=== PATIENT | male | born 1960 | race Caucasian/White ===

== ENCOUNTER 2017-02-25 18:12 | Emergency (ER) | payer OTHER ==
[~2017-02-25] VITALS: Ht 180.3 cm; Wt 97.9 kg
[~2017-02-25 18:12] MED LIST: METO100T44 PO
[2017-02-25 18:24] VITALS: TEMP 36.7; Ht 180.3 cm; Wt 97.9 kg
[2017-02-25] MEDS ORDERED: SODIUM CHLORIDE 0.9% 1000ML 1,000 ML IV STA (18:40)
--- NOTE | 2017-02-25 18:42 | EMERGENCY ROOM VISIT NOTE ---
History Report prepared by Grabiel: Brigette Tamayo Under the Supervision of: Dr. Soren Harrell M.D. First contact with patient: 18:27 Chief Complaint: ABDOMINAL PAIN Stated Complaint: PAIN IN RT SIDE History of Present Illness The patient is a 56 year old male who presents to the Emergency Room with complaints of constant right sided abdominal pain beginning yesterday. The patient rates his pain as a 3/10. The patient is concerned something is wrong with his gallbladder.The patient has a history of kidney stones. He states his pain does not feel similar or as severe as his previous kidney stones. He denies any fever, chills, nausea, vomiting, or blood in stool. The patient states he has been eating and drinking normally. He states he drank a Mountain Dew 30 minutes which he believes worsened his pain. The patient has a history of colon cancer and had had an extensive resection done. He reports diarrhea which is baseline for him since having his colon resection. Source of History: patient Onset: yesterday Position: abdomen Symptom Intensity: 3/10 Quality: other (pain) Timing: constant Modifying Factors (Worsening): other (mountian dew) Associated Symptoms: + abdominal pain, + diarrhea, No fevers, No chills, No nausea, No vomiting Review of Systems See HPI for pertinent positives and negatives. A total of ten systems were reviewed and were otherwise negative. Past Medical & Surgical Medical Problems: (1) Abdominal pain (2) Colon cancer (3) Hypertension (4) Kidney stone (5) Small bowel obstruction Family History Cancer Hypertension Social History Smoking Status: Never Smoker Alcohol Use: occasionally Housing Status: lives with significant other Occupation Status: employed Current/Historical Medications Scheduled Hydrochlorothiazide (Hctz), 50 MG PO DAILY Lisinopril (Zestril), 30 MG PO DAILY Metoprolol Succ (Toprol Xl) (Toprol-Xl ), 100 MG PO DAILY Potassium Ext Rel (Klor-Con), 20 MEQ PO DAILY Allergies Coded Allergies: No Known Allergies (Verified , 0, 10/09/15) Physical Exam Vital Signs Date Time Temp Pulse Resp B/P (MAP) Pulse Ox O2 Delivery O2 Flow Rate FiO2 02/25/17 21:32 65 18 168/106 98 Room Air 02/25/17 20:55 65 18 162/109 96 Room Air 02/25/17 18:24 36.7 70 20 183/97 97 Room Air Physical Exam GENERAL: Awake, alert, well-appearing, in no distress HENT: Normocephalic, atraumatic. Oropharynx unremarkable. EYES: Normal conjunctiva. Sclera non-icteric. NECK: Supple. No nuchal rigidity. FROM. No JVD. RESPIRATORY: Clear to auscultation. CARDIAC: Regular rate, normal rhythm. Extremities warm and well perfused. Pulses equal. ABDOMEN: Mild RUQ tenderness, no [place] sign no peritoneal signs. Soft, non- distended. No rebound or guarding. No masses. RECTAL: Deferred. MUSCULOSKELETAL: Chest examination reveals no tenderness. The back is symmetrical on inspection without obvious abnormality. There is no CVA tenderness to palpation. No joint edema. LOWER EXTREMITIES: Calves are equal size bilaterally and non-tender. No edema. No discoloration. NEURO: Normal sensorium. No sensory or motor deficits noted. SKIN: No rash or jaundice noted. Medical Decision & Procedures ER Provider Diagnostic Interpretation: Radiology results as stated below per my review and radiologist interpretation: BILIARY ULTRASOUND FINDINGS: The pancreas was nonvisualized. The liver was borderline enlarged. Multiple gallstones were visualized. Sludge is also present within the gallbladder. There was borderline gallbladder wall thickening fundal adenomyomatosis is suspected. There is no ductal dilatation. The common bile duct measures 5 mm. There is no right-sided hydronephrosis. The patient reported mild tenderness to gallbladder palpation. IMPRESSION: 1. Gallstones, gallbladder sludge, and borderline gallbladder wall thickening 2. The patient was mildly tender to gallbladder palpation 3. No evidence of ductal dilatation. The common bile duct measured 5 mm 4. Nondiagnostic evaluation of the pancreas Electronically signed by: Kelechi Ramos M.D. Laboratory Results 02/25/17 18:50 Red Blood Count 4.32, Mean Corpuscular Volume 90.0, Mean Corpuscular Hemoglobin 31.3, Mean Corpuscular Hemoglobin Concent 34.7, Mean Platelet Volume 10.1, Neutrophils (%) (Auto) 56.6, Lymphocytes (%) (Auto) 28.4, Monocytes (%) (Auto) 11.2, Eosinophils (%) (Auto) 2.7, Basophils (%) (Auto) 0.7, Neutrophils # (Auto ) 4.33, Lymphocytes # (Auto) 2.17, Monocytes # (Auto) 0.86, Eosinophils # (Auto ) 0.21, Basophils # (Auto) 0.05 02/25/17 18:50 Test 02/25/17 18:50 02/25/17 20:15 White Blood Count 7.65 K/uL (4.8-10.8) Red Blood Count 4.32 M/uL (4.7-6.1) Hemoglobin 13.5 g/dL (14.0-18.0) Hematocrit 38.9 % (42-52) Mean Corpuscular Volume 90.0 fL (80-100) Mean Corpuscular Hemoglobin 31.3 pg (25-34) Mean Corpuscular Hemoglobin Concent 34.7 g/dl (32-36) Platelet Count 229 K/uL (130-400) Mean Platelet Volume 10.1 fL (7.4-10.4) Neutrophils (%) (Auto) 56.6 % Lymphocytes (%) (Auto) 28.4 % Monocytes (%) (Auto) 11.2 % Eosinophils (%) (Auto) 2.7 % Basophils (%) (Auto) 0.7 % Neutrophils # (Auto) 4.33 K/uL (1.4-6.5) Lymphocytes # (Auto) 2.17 K/uL (1.2-3.4) Monocytes # (Auto) 0.86 K/uL (0.11-0.59) Eosinophils # (Auto) 0.21 K/uL (0-0.5) Basophils # (Auto) 0.05 K/uL (0-0.2) RDW Standard Deviation 46.1 fL (36.4-46.3) RDW Coefficient of Variation 13.9 % (11.5-14.5) Immature Granulocyte % (Auto) 0.4 % Immature Granulocyte # (Auto) 0.03 K/uL (0.00-0.02) Anion Gap 7.0 mmol/L (3-11) Est Creatinine Clear Calc Drug Dose 72.2 ml/min Estimated GFR () 67.8 Estimated GFR (Non- 58.5 BUN/Creatinine Ratio 16.3 (10-20) Calcium Level 8.4 mg/dl (8.5-10.1) Total Bilirubin 0.8 mg/dl (0.2-1) Direct Bilirubin 0.2 mg/dl (0-0.2) Aspartate Amino Transf (AST/SGOT) 31 U/L (15-37) Alanine Aminotransferase (ALT/SGPT) 50 U/L (12-78) Alkaline Phosphatase 89 U/L (45-117) Total Protein 6.8 gm/dl (6.4-8.2) Albumin 3.2 gm/dl (3.4-5.0) Lipase 169 U/L (73-393) Urine Color YELLOW Urine Appearance CLEAR (CLEAR) Urine pH 6.0 (4.5-7.5) Urine Specific [place] 1.016 (1.000-1.030) Urine Protein NEG (NEG) Urine Glucose (UA) NEG (NEG) Urine Ketones NEG (NEG) Urine Occult Blood NEG (NEG) Urine Nitrite NEG (NEG) Urine Bilirubin NEG (NEG) Urine Urobilinogen NEG (NEG) Urine Leukocyte Esterase NEG (NEG) Laboratory results reviewed by me Medications Administered Medications (Trade) Dose Ordered Sig/Ashley Route Start Time Stop Time Status Last Admin Dose Admin Sodium Chloride 1,000 ml @ 999 mls/hr Q1H1M STAT IV 02/25/17 18:40 02/25/17 19:40 DC 02/25/17 19:11 999 MLS/HR ED Course 183: The patient was evaluated in room B6. A complete history and physical exam was performed. 1926: Bedside US shows several gallstones in the gallbladder, no gross pericholecystic fluid 2103: I updated the patient on his ultrasound results. He would like to go home. 2128: I reevaluated the patient. Discussed results and discharge instructions: He verbalized understanding and agreement. The patient is ready for discharge. Medical Decision I reviewed the patient's past medical history, medications, and the nursing notes as described above. Differential diagnoses: biliary colic, chololithiasis, choledocholithiasis, pancreatitis, diverticulitis, colitis, gastroenteritis, UTI, ureteral stone The patient is a 56-year-old gentleman who presents emergency Department with right upper quadrant pain that has been ongoing since last night after having sausage for dinner per hpi. On arrival the patient is well-appearing, no acute distress, afebrile stable vital signs. He rates his pain as 3 out of of 10 and came to the ED just to make sure it was not his gallbladder. Exam the patient has mild right upper quadrant tenderness with negative Bailey's sign. Peritoneal signs otherwise. Labs unremarkable including WBC within normal limits. T bili and direct bili within normal limits. Bedside ultrasound demonstrates numerous gallstones without any pericholecystic fluid and grossly normal CBD. Formal ultrasound was ordered to further characterize and again demonstrated multiple gallstones. Was a comment of a questionably thickened gallbladder wall. However, given the patient is well-appearing with mostly resolved pain on reevaluation, afebrile, reassuring labs are likely to be cholecystitis at this time. I discussed these findings with the patient and he is agreeable to proceed with outpatient follow-up after and understands he will need to adjust his diet to minimize symptoms. He was given strict return instructions should his pain become worse, develop fevers, or nausea and vomiting. Findings and plan for follow-up reviewed with patient. Patient agreeable and d/c'd per discharge instructions. Medication Reconcilliation Current Medication List: was personally reviewed by me Blood Pressure Screening Patient's blood pressure: Elevated blood pressure Blood pressure disposition: Elevated BP felt to be situational Impression Primary Impression: Biliary colic Additional Impression: Gallstones without obstruction of gallbladder Scribe Attestation The scribe's documentation has been prepared under my direction and personally reviewed by me in its entirety. I confirm that the note above accurately reflects all work, treatment, procedures, and medical decision making performed by me. Departure Information Dispostion Home / Self-Care Referrals No Doctor, Assigned (PCP) Eric Luan, DO Forms Call Back Authorization, HOME CARE DOCUMENTATION FORM, IMPORTANT VISIT INFORMATION Patient Instructions ED Gallstone W Biliary Colic, My [facility] Additional Instructions Please follow up with your primary care physician in the next 1-3 days for re- evaluation and general surgery next week if symptoms persist. You were found to have multiple gallstones but your symptoms improved and your labs did not show signs of infection or obstruction at this time. Otherwise, your exam, ultrasound and lab results did not show signs of an emergent condition at this time. Avoid high fat foods. Return to the emergency department for worsening symptoms as described in the accompanying instructions. Problem Qualifiers
[2017-02-25 19:00] LABS: BASO % 0.7 %; BASO ABS # 0.05 K/uL (0-0.2); EOS % 2.7 %; EOS ABS # 0.21 K/uL (0-0.5); HEMATOCRIT 38.9 % (42-52); HEMOGLOBIN 13.5 g/dL (14.0-18.0); IG# 0.03 K/uL (0.00-0.02); LYMPH % 28.4 %; LYMPH ABS # 2.17 K/uL (1.2-3.4); MEAN CORPUSCULAR HEMOGLOBIN 31.3 pg (25-34); MEAN CORPUSCULAR HGB CONC 34.7 g/dl (32-36); MEAN PLATELET VOLUME 10.1 fL (7.4-10.4); MONO % 11.2 %; MONO ABS # 0.86 K/uL (0.11-0.59); NEUT % 56.6 %; NEUT ABS # 4.33 K/uL (1.4-6.5); PLATELET COUNT 229 K/uL (130-400); RED CELL DISTRIBUTION WIDTH CV 13.9 % (11.5-14.5); RED CELL DISTRIBUTION WIDTH SD 46.1 fL (36.4-46.3); WHITE BLOOD COUNT 7.65 K/uL (4.8-10.8)
[2017-02-25 19:22] LABS: ALBUMIN 3.2 gm/dl (3.4-5.0); CALCIUM 8.4 mg/dl (8.5-10.1); CREATININE 1.33 mg/dl (0.60-1.40); POTASSIUM 3.6 mmol/L (3.5-5.1)
[2017-02-25 19:25] LABS: TOTAL PROTEIN 6.8 gm/dl (6.4-8.2)
--- NOTE | 2017-02-25 20:47 | DIAGNOSTIC IMAGING REPORT ---
BILIARY ULTRASOUND CLINICAL HISTORY: Right upper quadrant abdominal pain. History of gallstones. COMPARISON STUDY: CT scan dated 10/10/2015 FINDINGS: The pancreas was nonvisualized. The liver was borderline enlarged. Multiple gallstones were visualized. Sludge is also present within the gallbladder. There was borderline gallbladder wall thickening fundal adenomyomatosis is suspected. There is no ductal dilatation. The common bile duct measures 5 mm. There is no right-sided hydronephrosis. The patient reported mild tenderness to gallbladder palpation. IMPRESSION: 1. Gallstones, gallbladder sludge, and borderline gallbladder wall thickening 2. The patient was mildly tender to gallbladder palpation 3. No evidence of ductal dilatation. The common bile duct measured 5 mm 4. Nondiagnostic evaluation of the pancreas Electronically signed by: Kelechi Ramos M.D. 02/25/2017 8:46 PM Dictated Date/Time: 02/25/2017 8:43 PM
[2017-02-25 21:32] VITALS: BP 168/106; PULSE 65; O2SAT 98
[2017-02-25] MEDS ORDERED: POTA20TA16 PO (23:46)
[2017-02-25] MEDS ORDERED: HYDR50TA3 PO (23:48)
[2017-02-25] MEDS ORDERED: LISI1TAB3 PO (23:49)
== END 2017-02-25 21:41 | disposition home or self-care (01) ==
LOC: C.EDB 18:13
DX: K80.50 Calculus of bile duct without cholangitis or cholecystitis without obstruction (principal); K80.20 Calculus of gallbladder without cholecystitis without obstruction; I10 Essential (primary) hypertension; K56.609 Unspecified intestinal obstruction, unspecified as to partial versus complete obstruction; Z87.442 Personal history of urinary calculi; Z85.46 Personal history of malignant neoplasm of prostate; Z79.899 Other long term (current) drug therapy; Z80.9 Family history of malignant neoplasm, unspecified; Z82.49 Family history of ischemic heart disease and other diseases of the circulatory system

== ENCOUNTER → 2017-03-06 | Outpatient (CLI) | payer OTHER ==
[~2017-03-06] MED LIST changes: +HYDR50TA3 PO; +LISI1TAB3 PO; +MULT-506 PO; +POTA20TA16 PO
[2017-03-06 10:15] LABS: BASO % 0.4 %; BASO ABS # 0.03 K/uL (0-0.2); EOS ABS # 0.15 K/uL (0-0.5); HEMATOCRIT 42.8 % (42-52); HEMOGLOBIN 14.7 g/dL (14.0-18.0); IG# 0.02 K/uL (0.00-0.02); LYMPH % 24.3 %; LYMPH ABS # 1.82 K/uL (1.2-3.4); MEAN CELL VOLUME 91.6 fL (80-100); MEAN CORPUSCULAR HEMOGLOBIN 31.5 pg (25-34); MEAN CORPUSCULAR HGB CONC 34.3 g/dl (32-36); MEAN PLATELET VOLUME 10.9 fL (7.4-10.4); MONO % 8.8 %; MONO ABS # 0.66 K/uL (0.11-0.59); NEUT % 64.2 %; PLATELET COUNT 276 K/uL (130-400); RED CELL DISTRIBUTION WIDTH CV 13.5 % (11.5-14.5); RED CELL DISTRIBUTION WIDTH SD 45.1 fL (36.4-46.3); WHITE BLOOD COUNT 7.48 K/uL (4.8-10.8)
[2017-03-06 10:50] LABS: BLOOD UREA NITROGEN 22 mg/dl (7-18); CARBON DIOXIDE 29 mmol/L (21-32); CREATININE 1.19 mg/dl (0.60-1.40); GLUCOSE 79 mg/dl (70-99); POTASSIUM 4.4 mmol/L (3.5-5.1); SODIUM 140 mmol/L (136-145)
== END | disposition home or self-care (01) ==
LOC: C.CPL 09:24
PROVIDERS: ATTEND Orthopaedic Surgery
DX: Z01.812 Encounter for preprocedural laboratory examination (principal); M75.122 Complete rotator cuff tear or rupture of left shoulder, not specified as traumatic

== ENCOUNTER → 2017-03-16 | Day surgery (SDC) | payer OTHER ==
[2017-03-07 10:04] VITALS: Ht 180.3 cm; Wt 90.9 kg
[~2017-03-16] VITALS: Ht 180.3 cm; Wt 90.9 kg
[~2017-03-16] MED LIST changes: +ATROPINE SULFATE 0.1 MG/ML 5ML SYR IV PRN; +BUPIVACAINE/EPINEPHRINE 0.25% 1:200,000 30 ML VIAL ONE; +CEFAZOLIN 2000MG IV PUSH 10 ML IV SCH; +DEXAMETHASONE SOD INJ 4 MG/ML VIAL ONE; +EpHEDrine SULFATE INJ 50 MG/ML AMP IV PRN; +EpHEDrine SULFATE INJ 50 MG/ML AMP ONE; +EpINEphrine INJ 1MG/ML AMP 1 MG/ML AMP ONE; +FENTANYL CITRATE INJ 50 MCG/1 ML 2 ML VIAL IV PRN; +FENTANYL CITRATE INJ 50 MCG/1 ML 2 ML VIAL ONE; +KETO10TA PO; +LACTATED RINGER'S 1000ML 1,000 ML IV SCH; +LIDOCAINE HCL 2% 2 ML VIAL (20MG/ML) ONE; +MIDAZOLAM HCL 1 MG/ML 2ML VIAL ONE; +ONDANSETRON INJ 2 MG/ML 2 ML VIAL IV PRN; +ONDANSETRON INJ 2 MG/ML 2 ML VIAL ONE; +OXYC-57 PO; +OXYCODONE/ACETAMINOPHEN 5-325 TAB PO PRN; +PROPOFOL IV EMULSION 10 MG/ML 20 ML VIAL IV ONE; +ROCURONIUM BROMIDE 10 MG/ML 5 ML VIAL IV ONE; +ROPIVACAINE 0.5% 5 MG/ML 30 ML VIAL ONE; +SODIUM CHLORIDE 0.9% 1000ML 1,000 ML IV SCH; +SODIUM CHLORIDE 0.9% INJ 10 ML VIAL ONE
--- NOTE | 2017-03-16 11:40 | History & Physical Bridge Note ---
H&P Re-Evaluation Bridge Note: I have examined the patient, reviewed the History & Physical and in the interval since the performance of the History & Physical I have noted the following changes of clinical significance: No changes noted
--- NOTE | 2017-03-16 15:26 | [facility] Post Operative Brief Note ---
Immediate Operative Summary Operative Date Mar 16, 2017. Pre-Operative Diagnosis Left Shoulder Rotator Cuff Tear Post-Operative Diagnosis Same Procedure(s) Performed Left Shoulder Arthroscopic Large Rotator Cuff Repair, Biceps Tenodesis, Acromioplasty Surgeon Dr. Rico Rhinologist Surgeon(s) Ashley Lopez PA-C Estimated Blood Loss 5ml Findings Consistent with Post-Op Diagnosis Specimens None Anesthesia Type General Regional Complication(s) none Disposition Disposition: Recovery Room / PACU
--- NOTE | 2017-03-16 15:50 | Discharge Instructions-SurgCtr ---
Discharge Instructions Date of Service Mar 16, 2017. Visit Reason for Visit: Left Shoulder Full Thickness Rotator Cuff Tear Discharge Discharge Diagnosis / Problem: SAME ABOVE Discharge Goals Goal(s): Decrease discomfort, Improve function Medications Stopped Medications Name(s): Took all medications last night. Restart Stopped Medication(s): MAY RESTART 03/16/2017 Activity Recommendations Activity Limitations: as noted below Lifting Limitations: until after follow-up appointment Exercise/Sports Limitations: until after follow-up appointment Shower/Bathe: tomorrow Anesthesia . Post Anesthesia Instructions: If you have had General Anesthesia or IV Sedation: * Do not drive today. * Resume driving when surgeon permits. * Do not make important decisions or sign legal documents today. * Call surgeon for: 1. Temperature elevations greater than 101 degrees F. 2. Uncontrollable pain. 3. Excessive bleeding. 4. Persistent nausea and vomiting. 5. Medication intolerance (nausea, vomiting or rash). * For nausea and vomiting use only clear liquids such as: tea, soda, bouillon until nausea subsides, then gradually increase diet as tolerated. * If you have any concerns or questions, call your surgeon's office. If physician is unavailable and it is an emergency, call 911 or go to the nearest emergency room. . Instructions / Follow-Up Instructions / Follow-Up MEDICATIONS: * Resume previous medications unless instructed otherwise by your surgeon. * Always take pain medication on a full stomach or with food to avoid upset stomach. * Do not drink alcohol or drive while taking narcotics. * Ibuprofen or Tylenol may be taken if narcotic not needed. SPECIAL CARE INSTRUCTIONS: __ None _X_ Keep extremity elevated and iced x 48 hours; apply ice 20-30 minutes 8-10 times/day. May remove at night. __ Sling __24 hrs/day __ Remove at night _X_ Shoulder Immobilizer _X_ 24 hrs/day __ Remove at night _X_ Dressing __ Maintain until seen in office, may shower with plastic over site _X_ Remove dressings in 24-48 hours and then may shower _X_ Cover incisions with band-aids after showering __ Do not remove steri-strips Call physician if chills or temperature rises above 102 degrees or pain unrelieved by prescribed pain medications at . . Diet Recommendations Home Diet: no limitations Fluid Restriction: None Procedures Procedures Performed: Left Shoulder Arthroscopic Large Rotator Cuff Repair, Biceps Tenodesis, Acromioplasty Pending Studies Studies pending at discharge: no Work Instructions Return To Work: after follow-up Lifting Limitations: NO LIFTING WITH LEFT ARM Medical Emergencies . Who to Call and When: Medical Emergencies: If at any time you feel your situation is an emergency, please call 911 immediately. . Non-Emergent Contact Non-Emergency issues call your: Primary Care Provider Call Non-Emergent contact if: you have a fever, temperature is above 101.5 . . "Provider Documentation" section prepared by Phani Lopez. .
[2017-03-16 16:35] VITALS: TEMP 36.4
--- NOTE | 2017-03-16 16:37 | Anesthesia Progress Nt - [facility] ---
Anesthesia Post Op Note Date & Time Mar 16, 2017 at 16:35 Vital Signs Pain Intensity: 0 Vital Signs Past 12 Hours Date Time Temp Pulse Resp B/P (MAP) Pulse Ox O2 Delivery O2 Flow Rate FiO2 03/16/17 16:13 36.4 74 16 168/98 99 Room Air Mask 03/16/17 16:10 79 15 99 03/16/17 16:10 78 15 03/16/17 16:06 175/105 03/16/17 16:05 75 16 99 03/16/17 16:05 76 16 03/16/17 16:02 180/100 03/16/17 16:01 180/101 03/16/17 16:00 82 15 98 03/16/17 16:00 82 15 03/16/17 15:56 176/98 03/16/17 15:55 83 16 03/16/17 15:55 82 16 99 03/16/17 15:51 169/94 03/16/17 15:50 79 17 100 03/16/17 15:50 80 17 03/16/17 15:46 166/89 03/16/17 15:45 77 22 100 03/16/17 15:45 76 22 03/16/17 15:41 171/90 03/16/17 15:40 82 30 100 03/16/17 15:40 82 30 03/16/17 15:39 169/90 03/16/17 15:38 83 100 03/16/17 15:38 83 03/16/17 15:35 36.1 84 16 193/98 99 Mask 03/16/17 15:35 193/98 03/16/17 15:33 182/100 03/16/17 13:47 0 03/16/17 13:46 161/99 03/16/17 13:42 57 28 99 03/16/17 13:42 57 03/16/17 13:41 169/95 03/16/17 13:40 58 03/16/17 13:40 58 12 100 03/16/17 13:39 65 52 99 03/16/17 13:39 65 03/16/17 13:34 63 15 100 03/16/17 13:34 62 03/16/17 13:29 56 19 99 03/16/17 13:29 55 03/16/17 13:24 59 21 99 03/16/17 13:24 56 03/16/17 13:23 53 03/16/17 13:23 53 19 100 03/16/17 13:22 50 03/16/17 13:22 46 20 100 03/16/17 13:21 146/91 03/16/17 13:21 146/91 03/16/17 13:18 55 20 99 03/16/17 13:18 55 03/16/17 13:18 55 03/16/17 13:18 55 20 99 03/16/17 13:17 50 20 99 03/16/17 13:17 52 03/16/17 13:16 146/90 03/16/17 13:13 56 22 100 03/16/17 13:13 55 03/16/17 13:12 62 16 100 03/16/17 13:12 62 16 100 03/16/17 13:12 63 03/16/17 13:12 63 03/16/17 13:11 161/95 03/16/17 13:10 62 03/16/17 13:10 63 19 100 03/16/17 13:09 63 03/16/17 13:09 60 24 100 03/16/17 13:06 151/89 03/16/17 13:04 63 03/16/17 13:04 63 20 100 03/16/17 13:03 161/96 03/16/17 13:00 58 03/16/17 13:00 59 33 100 03/16/17 12:59 50 18 100 03/16/17 12:59 51 03/16/17 12:59 50 18 100 03/16/17 12:59 51 03/16/17 10:45 36.6 60 18 156/99 (118) 96 Room Air Notes Mental Status: alert / awake / arousable, participated in evaluation Pt Amnestic to Procedure: Yes Nausea / Vomiting: adequately controlled Pain: adequately controlled Airway Patency, RR, SpO2: stable & adequate BP & HR: stable & adequate Hydration State: stable & adequate Anesthetic Complications: no major complications apparent The patient usually takes his antihypertensive meds at 1700 which is about the time of discharge. He was instructed to take them when he gets home.
[2017-03-16 16:48] VITALS: BP 171/99; PULSE 90; O2SAT 96
--- NOTE | 2017-03-16 16:52 | OPERATIVE REPORT ---
DATE OF OPERATION: 03/16/2017 PREOPERATIVE DIAGNOSIS: Large left rotator cuff tear. POSTOPERATIVE DIAGNOSIS: Same. PROCEDURE: Left shoulder diagnostic arthroscopy with extensive debridement, acromioplasty, large rotator cuff repair and arthroscopic biceps tenodesis. SURGEON: Dr. Clint Rico. SILK SPOTTER: Francesco Lopez PA-C, whose assistance was necessary for positioning the arm and helping with instrumentation. ANESTHESIA: General with left interscalene nerve block. COMPLICATIONS: None. CONDITION: Stable to PACU. INDICATIONS: Jossue is a pleasant 56-year-old male who presented to my office with complaints of left shoulder pain. MRI and clinical examination were diagnostic for large left rotator cuff tear. After failing conservative treatment, he elected to undergo arthroscopy. On 03/16/2017, he arrived at [facility] for the above procedure. He was seen in the preoperative holding area and the operative extremity was identified and signed. He was given a preoperative antibiotic and left interscalene nerve block. He was then taken back to the operating room, laid on table in supine position and put under general anesthesia. He was then put into the beachchair position. The left shoulder was prepped and draped in sterile fashion. Timeout was done, and the patient and operative extremity was properly identified. A scope was introduced in the posterior portal. Diagnostic arthroscopy showed no cartilage damage to the humeral head or the glenoid. The biceps tendon was frayed in the biceps daria mechanism. The subscapularis was intact. There was a tear of the entire supraspinatus and most of the infraspinatus. The teres minor was intact. An anterior portal was made. A shaver was used to do a limited debridement of some of the intraarticular structures. The biceps tendon was arthroscopically tenotomized for later tenodesis. The scope was then put into the subacromial space. A lateral portal was made. A shaver was used to do a complete subacromial and subdeltoid bursectomy. An ablator was used to tease the coracoacromial ligament off the undersurface of the acromion and a 5-0 johnnie was used to complete an acromioplasty of a Bigliani type 3 acromion. A shaver was used to remove any excess debris and attention was turned to the rotator cuff. It was a large, almost U-shaped tear. The greater tuberosity was prepared with a ring curette and microfracture. Rotator cuff was then fixed with an Arthrex suspension bridge configuration using 4.75 mm BioComposite SwiveLock suture anchors and FiberTapes. This gave a nice knotless SpeedBridge repair. Multiple pictures were taken. The scope was put back into the glenohumeral joint and the articular margin of the rotator cuff had been restored. Pictures were taken. During the procedure, the long head of the biceps tendon was tagged with an Arthrex FiberLink suture. That was incorporated into the anterior medial anchor to complete an arthroscopic biceps tenodesis. Arthroscopic instruments were removed from the shoulder. Portal sites were closed with 3-0 nylon. He was then placed in a soft dressing and a left arm sling. He was then extubated, transferred to a litter and taken to the postanesthesia care unit in stable condition. He tolerated the procedure well. I attest to the content of the Intraoperative Record and any orders documented therein. Any exception s are noted below.
== END | disposition home or self-care (01) ==
LOC: X.SURG 10:32
PROVIDERS: ATTEND Orthopaedic Surgery
DX: S46.012A Strain of muscle(s) and tendon(s) of the rotator cuff of left shoulder, initial encounter (principal); X58.XXXA Exposure to other specified factors, initial encounter; Z80.0 Family history of malignant neoplasm of digestive organs; I10 Essential (primary) hypertension; Z79.899 Other long term (current) drug therapy

== ENCOUNTER 2017-05-01 09:35 | Emergency (ER) | payer OTHER ==
[~2017-05-01] VITALS: Ht 180.3 cm; Wt 88.8 kg
[~2017-05-01 09:35] MED LIST changes: -ATROPINE SULFATE 0.1 MG/ML 5ML SYR IV PRN; -BUPIVACAINE/EPINEPHRINE 0.25% 1:200,000 30 ML VIAL ONE; -CEFAZOLIN 2000MG IV PUSH 10 ML IV SCH; -DEXAMETHASONE SOD INJ 4 MG/ML VIAL ONE; -EpHEDrine SULFATE INJ 50 MG/ML AMP IV PRN; -EpHEDrine SULFATE INJ 50 MG/ML AMP ONE; -EpINEphrine INJ 1MG/ML AMP 1 MG/ML AMP ONE; -FENTANYL CITRATE INJ 50 MCG/1 ML 2 ML VIAL IV PRN; -FENTANYL CITRATE INJ 50 MCG/1 ML 2 ML VIAL ONE; -LACTATED RINGER'S 1000ML 1,000 ML IV SCH; -LIDOCAINE HCL 2% 2 ML VIAL (20MG/ML) ONE; -MIDAZOLAM HCL 1 MG/ML 2ML VIAL ONE; -ONDANSETRON INJ 2 MG/ML 2 ML VIAL IV PRN; -ONDANSETRON INJ 2 MG/ML 2 ML VIAL ONE; -OXYCODONE/ACETAMINOPHEN 5-325 TAB PO PRN; -PROPOFOL IV EMULSION 10 MG/ML 20 ML VIAL IV ONE; -ROCURONIUM BROMIDE 10 MG/ML 5 ML VIAL IV ONE; -ROPIVACAINE 0.5% 5 MG/ML 30 ML VIAL ONE; -SODIUM CHLORIDE 0.9% 1000ML 1,000 ML IV SCH; -SODIUM CHLORIDE 0.9% INJ 10 ML VIAL ONE
[2017-05-01 09:39] VITALS: TEMP 36.9; Ht 180.3 cm; Wt 88.8 kg
[2017-05-01 09:53] VITALS: O2SAT 96
[2017-05-01] MEDS ORDERED: GI COCKTAIL PO STA (10:08)
[2017-05-01] MEDS ORDERED: FAMOTIDINE 20 MG TAB PO ONE (10:15)
[2017-05-01 10:19] LABS: BASO % 0.5 %; BASO ABS # 0.04 K/uL (0-0.2); EOS ABS # 0.34 K/uL (0-0.5); HEMATOCRIT 40.7 % (42-52); HEMOGLOBIN 14.3 g/dL (14.0-18.0); IG# 0.04 K/uL (0.00-0.02); LYMPH % 25.9 %; LYMPH ABS # 2.19 K/uL (1.2-3.4); MEAN CELL VOLUME 87.7 fL (80-100); MEAN CORPUSCULAR HEMOGLOBIN 30.8 pg (25-34); MEAN CORPUSCULAR HGB CONC 35.1 g/dl (32-36); MEAN PLATELET VOLUME 9.8 fL (7.4-10.4); MONO % 7.7 %; MONO ABS # 0.65 K/uL (0.11-0.59); NEUT % 61.4 %; NEUT ABS # 5.18 K/uL (1.4-6.5); PLATELET COUNT 338 K/uL (130-400); RED CELL DISTRIBUTION WIDTH CV 13.2 % (11.5-14.5); RED CELL DISTRIBUTION WIDTH SD 42.5 fL (36.4-46.3); WHITE BLOOD COUNT 8.44 K/uL (4.8-10.8)
[2017-05-01] MEDS ORDERED: ALUMINUM/MAGNESIUM SUSP 30 ML UDC ONE (10:23)
[2017-05-01] MEDS ORDERED: LIDOCAINE HCL 2% VISC SOLN 20 ML UDC ONE (10:23)
[2017-05-01] MEDS ORDERED: HYZ/10015 PO (10:28)
[2017-05-01] MEDS ORDERED: ASPI81TA28 PO (10:28)
--- NOTE | 2017-05-01 10:30 | DIAGNOSTIC IMAGING REPORT ---
CHEST ONE VIEW PORTABLE CLINICAL HISTORY: Chest pain. Burning in chest. COMPARISON STUDY: No previous studies for comparison. FINDINGS: A moderate to large hiatal hernia is noted. There are multiple healed right rib fractures. No pneumothorax or pleural effusion is noted. There is no evidence for pulmonary edema. Cardiac size is normal. There is no consolidation to suggest pneumonia. IMPRESSION: 1. No acute cardiopulmonary findings. 2. Moderate to large hiatal hernia. Electronically signed by: Brian Thomas M.D. 05/01/2017 10:28 AM Dictated Date/Time: 05/01/2017 10:27 AM
[2017-05-01 10:31] LABS: ALBUMIN 3.6 gm/dl (3.4-5.0); ALT/SGPT 53 U/L (12-78); BLOOD UREA NITROGEN 19 mg/dl (7-18); CARBON DIOXIDE 26 mmol/L (21-32); CREATININE 1.04 mg/dl (0.60-1.40); GLUCOSE 92 mg/dl (70-99); LIPASE 161 U/L (73-393); POTASSIUM 3.5 mmol/L (3.5-5.1); SODIUM 138 mmol/L (136-145)
[2017-05-01 10:32] LABS: PTT PATIENT 26.6 SECONDS (21.0-31.0)
[2017-05-01 10:37] LABS: ALKALINE PHOSPHATASE 109 U/L (45-117); AST/SGOT 22 U/L (15-37); TOTAL PROTEIN 7.7 gm/dl (6.4-8.2)
--- NOTE | 2017-05-01 10:49 | EMERGENCY ROOM VISIT NOTE ---
History Report prepared by Grabiel: Jt Sellers Under the Supervision of: Dr. Seth Kennedy M.D. First contact with patient: 09:46 Chief Complaint: CARDIAC ASSESSMENT Stated Complaint: CHEST PAIN. BURING IN CHEST, HIGH BLOOD PRESSURE Nursing Triage Summary: Pt reports substernal cp x 1 week unchanged with exertion. States h/a, at times ears feel hot. Has been dealing with elevated bp, recently had Losartan dose changed. Pt states had gall bladder out on 04/10. Gets pain up right side of chest and neck, had this before gall bladder surgery. History of Present Illness The patient is a 56 year old white female with a past medical history of HTN, kidney stone, right shoulder surgery, colon CA, s/p cholecystectomy who presents to the ED with a cc of intermittent right sided chest pain beginning one week ago. Describes his pain as a "burning". Pain radiates up to right ear. Rates his pain as "light". Positive lightheadedness and occasional diaphoresis. He currently has no symptoms. Patient notes that his blood pressure has been running very high recently, and has been unable to be decreased. He denies modifying factors (including exertion). Patient notes she he had his gallbladder out about a month ago. Negative shortness of breath, nausea, vomiting. No recent falls, trauma, or straining. Patient does not believe his shoulder surgery is related. Source of History: patient Onset: One week ago Position: chest (right) Symptom Intensity: "light" Quality: burning Timing: intermittent Modifying Factors (Worsening): other (none) Modifying Factors (Relieving): other (none) Associated Symptoms: + diaphoresis (occasional), No SOB, No nausea, No vomiting Note: Positive: lightheadedness and pain radiating into his right ear. Review of Systems See HPI for pertinent positives and negatives. A total of ten systems were reviewed and were otherwise negative. Past Medical & Surgical Medical Problems: (1) Abdominal pain (2) Colon cancer (3) Hypertension (4) Kidney stone (5) Small bowel obstruction Family History Cancer Hypertension Social History Smoking Status: Never Smoker Alcohol Use: occasionally Housing Status: lives with significant other Occupation Status: employed Current/Historical Medications Scheduled Aspirin (Aspirin Ec), 81 MG PO DAILY Hctz/Losartan (Hyzaar 25MG/100MG), 1 TAB PO DAILY Metoprolol Succ (Toprol Xl) (Toprol-Xl ), 100 MG PO QPM Multivitamin (Multivitamin), 1 TAB PO QPM Potassium Ext Rel (Klor-Con), 20 MEQ PO QPM Allergies Coded Allergies: No Known Allergies (Verified , 0, 05/01/17) Physical Exam Vital Signs Date Time Temp Pulse Resp B/P (MAP) Pulse Ox O2 Delivery O2 Flow Rate FiO2 05/01/17 10:36 72 20 169/108 97 Room Air 05/01/17 09:53 96 Room Air 05/01/17 09:47 75 05/01/17 09:39 36.9 71 18 166/105 98 Room Air Physical Exam GENERAL: Awake, alert, well-appearing, NAD HENT: Normocephalic, atraumatic. EYES: Normal conjunctiva. Sclera non-icteric. NECK: Supple. No nuchal rigidity. FROM. RESPIRATORY: CTAB, no rhonchi, wheezing, crackles CARDIAC: RRR, no MRG ABDOMEN: Soft, NTND, BS+. Midline abdominal incisional scar. Well healing. No erythema, fluctuance or calor. MSK: No reproducible chest wall TTP, no LE edema NEURO: GCS 15, CN 2-12 intact, moves all 4s on command SKIN: No rash or jaundice noted. Medical Decision & Procedures ER Provider Diagnostic Interpretation: Radiology results as stated below per my review and radiologist interpretation: CHEST ONE VIEW PORTABLE FINDINGS: A moderate to large hiatal hernia is noted. There are multiple healed right rib fractures. No pneumothorax or pleural effusion is noted. There is no evidence for pulmonary edema. Cardiac size is normal. There is no consolidation to suggest pneumonia. IMPRESSION: 1. No acute cardiopulmonary findings. 2. Moderate to large hiatal hernia. Electronically signed by: Brian hTomas M.D. 05/01/2017 10:28 AM Laboratory Results 05/01/17 08:50 Red Blood Count 4.64, Mean Corpuscular Volume 87.7, Mean Corpuscular Hemoglobin 30.8, Mean Corpuscular Hemoglobin Concent 35.1, Mean Platelet Volume 9.8, Neutrophils (%) (Auto) 61.4, Lymphocytes (%) (Auto) 25.9, Monocytes (%) (Auto) 7.7, Eosinophils (%) (Auto) 4.0, Basophils (%) (Auto) 0.5, Neutrophils # (Auto) 5.18, Lymphocytes # (Auto) 2.19, Monocytes # (Auto) 0.65, Eosinophils # (Auto) 0.34, Basophils # (Auto) 0.04 05/01/17 08:50 Test 05/01/17 08:50 05/01/17 10:15 White Blood Count 8.44 K/uL (4.8-10.8) Red Blood Count 4.64 M/uL (4.7-6.1) Hemoglobin 14.3 g/dL (14.0-18.0) Hematocrit 40.7 % (42-52) Mean Corpuscular Volume 87.7 fL (80-100) Mean Corpuscular Hemoglobin 30.8 pg (25-34) Mean Corpuscular Hemoglobin Concent 35.1 g/dl (32-36) Platelet Count 338 K/uL (130-400) Mean Platelet Volume 9.8 fL (7.4-10.4) Neutrophils (%) (Auto) 61.4 % Lymphocytes (%) (Auto) 25.9 % Monocytes (%) (Auto) 7.7 % Eosinophils (%) (Auto) 4.0 % Basophils (%) (Auto) 0.5 % Neutrophils # (Auto) 5.18 K/uL (1.4-6.5) Lymphocytes # (Auto) 2.19 K/uL (1.2-3.4) Monocytes # (Auto) 0.65 K/uL (0.11-0.59) Eosinophils # (Auto) 0.34 K/uL (0-0.5) Basophils # (Auto) 0.04 K/uL (0-0.2) RDW Standard Deviation 42.5 fL (36.4-46.3) RDW Coefficient of Variation 13.2 % (11.5-14.5) Immature Granulocyte % (Auto) 0.5 % Immature Granulocyte # (Auto) 0.04 K/uL (0.00-0.02) Prothrombin Time 10.0 SECONDS (9.0-12.0) Prothromb Time International Ratio 1.0 (0.9-1.1) Activated Partial Thromboplast Time 26.6 SECONDS (21.0-31.0) Partial Thromboplastin Ratio 1.0 Anion Gap 6.0 mmol/L (3-11) Est Creatinine Clear Calc Drug Dose 82.4 ml/min Estimated GFR () 91.3 Estimated GFR (Non- 78.8 BUN/Creatinine Ratio 18.6 (10-20) Calcium Level 9.0 mg/dl (8.5-10.1) Total Bilirubin 1.0 mg/dl (0.2-1) Direct Bilirubin 0.2 mg/dl (0-0.2) Aspartate Amino Transf (AST/SGOT) 22 U/L (15-37) Alanine Aminotransferase (ALT/SGPT) 53 U/L (12-78) Alkaline Phosphatase 109 U/L (45-117) Troponin I < 0.015 ng/ml (0-0.045) Pro-B-Type Natriuretic Peptide 30 pg/ml (0-900) Total Protein 7.7 gm/dl (6.4-8.2) Albumin 3.6 gm/dl (3.4-5.0) Lipase 161 U/L (73-393) Lyme Disease IgG Antibody NEG (NEG) Urine Color YELLOW Urine Appearance CLEAR (CLEAR) Urine pH 6.0 (4.5-7.5) Urine Specific Oscar 1.016 (1.000-1.030) Urine Protein NEG (NEG) Urine Glucose (UA) NEG (NEG) Urine Ketones NEG (NEG) Urine Occult Blood NEG (NEG) Urine Nitrite NEG (NEG) Urine Bilirubin NEG (NEG) Urine Urobilinogen NEG (NEG) Urine Leukocyte Esterase NEG (NEG) Laboratory results reviewed by me Medications Administered Medications (Trade) Dose Ordered Sig/Ashley Route Start Time Stop Time Status Last Admin Dose Admin Famotidine (Pepcid Tab) 20 mg NOW ONCE PO 05/01/17 10:15 05/01/17 10:16 DC 05/01/17 10:34 20 MG Al Hydroxide/Mg Hydroxide (Maalox Susp) 30 ml STK-MED ONCE .ROUTE 05/01/17 10:23 05/01/17 10:24 DC 05/01/17 10:34 30 ML Lidocaine HCl (Viscous Lidocaine 2% Soln) 20 ml STK-MED ONCE .ROUTE 05/01/17 10:23 05/01/17 10:24 DC 05/01/17 10:34 20 ML ECG Per My Interpretation Indication: chest pain Rhythm: sinus rhythm Findings: 1st degree AV block, left axis deviation, other (Prolonged IN interval. No STS changes or TWI. ) ED Course 1000: The patient was evaluated in room B10. A complete history and physical exam was performed. 1150: I reevaluated the patient. Discussed results and discharge instructions: he verbalized understanding and agreement. The patient is ready for discharge. Medical Decision The patient is a 56 year old white female with a past medical history of HTN, kidney stone, right shoulder surgery, colon CA, s/p cholecystectomy who presents to the ED with a cc of intermittent right sided chest pain beginning one week ago. Differential diagnosis: Etiologies such as cardiac ischemia, aortic dissection, pulmonary embolism, pneumonia, pneumothorax, musculoskeletal, infections, pericarditis, myocarditis , esophageal rupture, gastrointestinal, as well as others were entertained. Prior records were reviewed. The patient did have a recent left rotator arthroscopic procedure performed by Dr. Rico at the end of February. Patient was seen and evaluated the bedside. Patient presented here as the patient denies that he has had some increasing blood pressure since his arthroscopic procedure. The patient also did note that he had some burning in the right side of his chest as well as some focal left sided chest pain. Patient states that sharp. Patient denies any diaphoresis, nausea, vomiting. Patient denies any exertional symptoms, JAEGER. Patient states that he was able to ambulate up hills without any difficulty whatsoever and without any reproducible chest discomfort or shortness of breath. Patient denies any lower extremity swelling. Patient is an avid priscila. Patient denies any tick bites. Patient did have blood work completed, EKG, troponin, chest x-ray, and was given medications for symptom control for GI upset more prophylactically as the patient was asymptomatic at the bedside. Patient's EKG was unremarkable. Patient chest x-ray did show a hiatal hernia. Patient was feeling well. Patient's other blood work was fairly unremarkable. Patient did have an equivocal Lyme's titer. Patient did remark that he did test positive for this in the past. Patient with a heart score less than 4. Patient PE RC of 1 given the patient's age but with a well score of 0. Less likely PE. I did discuss splitting up his antihypertensive medications between morning and evening as well as taking one half tablets of his Toprol. Patient was told to follow-up with his primary care. Patient was given strict follow-up, discharge, and return precautions. All questions were answered. Patient was deemed suitable for outpatient follow-up at this time. Patient agreed with the plan of care and was safely discharged home. Medication Reconcilliation Current Medication List: was personally reviewed by me Blood Pressure Screening Patient's blood pressure: Elevated blood pressure Blood pressure disposition: Referred to PCP Impression Primary Impression: Hypertension Additional Impression: Hiatal hernia Scribe Attestation The scribe's documentation has been prepared under my direction and personally reviewed by me in its entirety. I confirm that the note above accurately reflects all work, treatment, procedures, and medical decision making performed by me. Departure Information Dispostion Home / Self-Care Referrals Finesse Sinclair M.D. (PCP) Patient Instructions Acid Reflux, Hiatal Hernia, My [facility] Additional Instructions Please return to the emergency department if you have worsening or recurrent symptoms not amenable to at-home treatment. Please call for a follow-up appointment with her primary care physician. Please take your medications as prescribed. If you have other concerns and/or complaints please feel free to also call your primary care physician's office or return the ED for further evaluation, management, and treatment. As discussed please take your Hyzaar in the morning and your Toprol in the evening. Consider taking 1-1/2 tablets of the Toprol in the evening. Consider taking a Pepcid or Zantac. Follow-up with your primary care physician to discuss treatment options for your hiatal hernia. You have been examined and treated today on an emergency basis only. This is not a substitute for, or an effort to provide, complete comprehensive medical care. It is impossible to recognize and treat all injuries or illnesses in a single emergency department visit. It is therefore important that you follow up closely with [facility], your PCP, and/or your specialist(s). Call as soon as possible for an appointment. Thank you for your time and consideration. I look forward to speaking with you again soon. Please don't hesitate to call us if you have any questions. Problem Qualifiers Primary Impression: Hypertension Hypertension type: unspecified Qualified Codes: I10 - Essential (primary) hypertension
[2017-05-01 12:05] VITALS: BP 174/104; PULSE 67; O2SAT 97
== END 2017-05-01 12:20 | disposition home or self-care (01) ==
LOC: C.EDB 09:36
DX: I10 Essential (primary) hypertension (principal); K44.9 Diaphragmatic hernia without obstruction or gangrene; Z79.82 Long term (current) use of aspirin; Z90.49 Acquired absence of other specified parts of digestive tract; Z98.890 Other specified postprocedural states; Z85.038 Personal history of other malignant neoplasm of large intestine; Z87.442 Personal history of urinary calculi; Z82.49 Family history of ischemic heart disease and other diseases of the circulatory system

== ENCOUNTER → 2017-09-21 | Day surgery (SDC) | payer OTHER ==
[2017-09-11 12:15] VITALS: Ht 180.3 cm; Wt 95.5 kg
[~2017-09-21] VITALS: Ht 180.3 cm; Wt 95.5 kg
[~2017-09-21] MED LIST changes: +AMLO10TA2 PO; +ASPI81TA28 PO; +ATROPINE SULFATE 0.1 MG/ML 5ML SYR IV PRN; +CEFAZOLIN 2000MG IV PUSH 15 ML IV SCH; +FENTANYL CITRATE INJ 50 MCG/1 ML 2 ML VIAL ONE; -HYDR50TA3 PO; +HYZ/10015 PO; -KETO10TA PO; +LACTATED RINGER'S 1000ML 1,000 ML IV SCH; +LIDOCAINE HCL 2% 2 ML VIAL (20MG/ML) ONE; +LIDOCAINE HCL 2% LOCAL 20 ML VIAL ONE; -LISI1TAB3 PO; +MIDAZOLAM HCL 1 MG/ML 2ML VIAL ONE; +ONDANSETRON INJ 2 MG/ML 2 ML VIAL IV PRN; +OXYCODONE/ACETAMINOPHEN 5-325 TAB PO PRN; +POTA-639 PO; -POTA20TA16 PO; +PROPOFOL IV EMULSION 10 MG/ML 20 ML VIAL ONE; +SODIUM CHLORIDE 0.9% 1000ML 1,000 ML IV SCH
--- NOTE | 2017-09-21 08:49 | [facility] Post Operative Brief Note ---
Immediate Operative Summary Operative Date Sep 21, 2017. Pre-Operative Diagnosis LEFT CARPAL TUNNEL SYNDROME Post-Operative Diagnosis SAME PREOP Procedure(s) Performed Left Carpal Tunnel Release Surgeon DR. Viri BARLOW Baseball Inspector And Repairer Surgeon(s) JAN EID PA-C Estimated Blood Loss 0 ML Findings Consistent with Post-Op Diagnosis Specimens NONE Anesthesia Type MAC
--- NOTE | 2017-09-21 09:00 | Discharge Instructions-SurgCtr ---
Discharge Instructions Date of Service Sep 21, 2017. Visit Reason for Visit: Left Carpal Tunnel Syndrome Discharge Discharge Diagnosis / Problem: SAME ABOVE Discharge Goals Goal(s): Decrease discomfort, Improve function Medications Stopped Medications Name(s): Aspirin Stopped 5 days ago. Restart Stopped Medication(s): MAY RESTART 09/21/2017 Activity Recommendations Activity Limitations: as noted below Lifting Limitations: until after follow-up appointment Exercise/Sports Limitations: until after follow-up appointment Shower/Bathe: tomorrow Anesthesia . Post Anesthesia Instructions: If you have had General Anesthesia or IV Sedation: * Do not drive today. * Resume driving when surgeon permits. * Do not make important decisions or sign legal documents today. * Call surgeon for: 1. Temperature elevations greater than 101 degrees F. 2. Uncontrollable pain. 3. Excessive bleeding. 4. Persistent nausea and vomiting. 5. Medication intolerance (nausea, vomiting or rash). * For nausea and vomiting use only clear liquids such as: tea, soda, bouillon until nausea subsides, then gradually increase diet as tolerated. * If you have any concerns or questions, call your surgeon's office. If physician is unavailable and it is an emergency, call 911 or go to the nearest emergency room. . Instructions / Follow-Up Instructions / Follow-Up MEDICATIONS: * Resume previous medications unless instructed otherwise by your surgeon. * Always take pain medication on a full stomach or with food to avoid upset stomach. * Do not drink alcohol or drive while taking narcotics. * Ibuprofen or Tylenol may be taken if narcotic not needed. SPECIAL CARE INSTRUCTIONS: __ None _X_ Keep extremity elevated and iced x 48 hours; apply ice 20-30 minutes 8-10 times/day. May remove at night. __ Sling __24 hrs/day __ Remove at night __ Shoulder Immobilizer __ 24 hrs/day __ Remove at night _X_ Dressing __ Maintain until seen in office, may shower with plastic over site _X_ Remove dressings in 5 DAYS. MAY SHOWER IF COVERED WITH PLASTIC BAG _X_ Cover incisions with band-aids after showering __ Do not remove steri-strips Call physician if chills or temperature rises above 102 degrees or pain unrelieved by prescribed pain medications at . . Diet Recommendations Home Diet: no limitations Fluid Restriction: None Procedures Procedures Performed: Left Carpal Tunnel Release Pending Studies Studies pending at discharge: no Work Instructions Return To Work: after follow-up Lifting Limitations: no more than 10 pounds Medical Emergencies . Who to Call and When: Medical Emergencies: If at any time you feel your situation is an emergency, please call 911 immediately. . Non-Emergent Contact Non-Emergency issues call your: Surgeon Call Non-Emergent contact if: your pain is not controlled, wound has increased drainage, wound has increased redness . . "Provider Documentation" section prepared by Phani Lopez. .
--- NOTE | 2017-09-21 09:03 | OPERATIVE REPORT ---
DATE OF OPERATION: 09/21/2017 PREOPERATIVE DIAGNOSIS: Carpal tunnel syndrome of the left wrist. POSTOPERATIVE DIAGNOSIS: Carpal tunnel syndrome of the left wrist. PROCEDURE: Open carpal tunnel release. SURGEON: Dr. Clint Rico. COOK HELPER DESSERT: Phani Lopez PA-C, whose assistance was necessary for retraction and closure. ANESTHESIA: Local with sedation. COMPLICATIONS: None. CONDITION: Stable to PACU. INDICATIONS: Jossue is a pleasant 56-year-old male who has been complaining of neuropathy of his left hand. EMG and clinical examination were diagnostic for carpal tunnel syndrome in the left wrist. After failing conservative treatment, he elected to proceed with an open left carpal tunnel release. On 09/21/2017, he arrived at [facility] for the above procedure. He was seen in the preoperative holding area and the operative extremity was identified and signed. He was given a preoperative antibiotic, taken back to the operating room, laid on the table in supine position and put under basic sedation. The left hand was then prepped and draped in sterile fashion. Time-out was done and the patient's operative extremity was properly identified. The surgical site was anesthetized with 10 mL of lidocaine. A longitudinal incision was made directly over the transverse carpal ligament. Dissection was taken down through the palmar fascia with care not to disrupt the palmar cutaneous branch or the motor branch. The transverse carpal ligament was then released with a knife and tenotomy scissors. Care was taken to ensure complete proximal and distal release. The wound was then irrigated. Tourniquet was deflated and hemostasis was obtained. The wound was then closed with 4-0 nylon suture in mattress fashion. We then placed in a soft compressive dressing and taken to the postanesthesia care unit in stable condition. He tolerated the procedure well. I attest to the content of the Intraoperative Record and any orders documented therein. Any exception s are noted below.
[2017-09-21 09:04] VITALS: TEMP 36.3
--- NOTE | 2017-09-21 09:15 | Anesthesia Progress Nt - [facility] ---
Anesthesia Post Op Note Date & Time Sep 21, 2017 at 09:15 Vital Signs Pain Intensity: 0 Vital Signs Past 12 Hours Date Time Temp Pulse Resp B/P (MAP) Pulse Ox O2 Delivery O2 Flow Rate FiO2 09/21/17 09:04 36.3 79 12 137/88 (104) 96 Room Air 09/21/17 07:49 36.9 74 18 143/93 (110) 95 Room Air Notes Mental Status: alert / awake / arousable, participated in evaluation Pt Amnestic to Procedure: Yes Nausea / Vomiting: adequately controlled Pain: adequately controlled Airway Patency, RR, SpO2: stable & adequate BP & HR: stable & adequate Hydration State: stable & adequate Anesthetic Complications: no major complications apparent
[2017-09-21 09:23] VITALS: BP 138/91; PULSE 69; O2SAT 98
== END | disposition home or self-care (01) ==
LOC: X.SURG 07:33
PROVIDERS: ATTEND Orthopaedic Surgery
DX: G56.02 Carpal tunnel syndrome, left upper limb (principal); I10 Essential (primary) hypertension; M19.90 Unspecified osteoarthritis, unspecified site; Z85.038 Personal history of other malignant neoplasm of large intestine; K21.9 Gastro-esophageal reflux disease without esophagitis; Z79.82 Long term (current) use of aspirin; Z79.899 Other long term (current) drug therapy